=== PATIENT | male | born 1990 | race Caucasian/White ===

== ENCOUNTER 2018-12-17 14:25 | Emergency (ER) | payer OTHER ==
--- NOTE | 2018-12-18 13:50 | EDM.PDOC ---
ED HPI GENERAL MEDICAL PROBLEM - General Chief Complaint: Laceration Stated Complaint: CUT THUMB AT WORK Time Seen by Provider: 12/17/18 15:10 Source of Information: Reports: Patient History Limitations: Reports: No Limitations - History of Present Illness INITIAL COMMENTS - FREE TEXT/NARRATIVE: He cut his thumb on a Utility Knife while he was cutting duct tape off his boot. He lacerated the left thumb with an approx 1 cm laceration and this occurred at work. Onset: Today, Sudden Location: Reports: Other (left thumb PIP ) Quality: Reports: Other (bled profusely at first) Severity: Moderate Improves with: Reports: Other (pressure applied stopped bleeding) Worsens with: Reports: Movement Context: Reports: Activity Associated Symptoms: Reports: No Other Symptoms Treatments [employer]: Reports: Other (see below) (bandage) - Related Data Allergies Allergy/AdvReac Type Severity Reaction Status Date / Time No Known Allergies Allergy Verified 12/17/18 18:11 Home Meds: Home Meds . [Unable to Verify Home Med List] 12/17/18 [History] Past Medical History HEENT History: Reports: Other (See Below) Psychiatric History: Reports: ADHD, Depression - Past Surgical History HEENT Surgical History: Reports: Other (See Below) Other HEENT Surgeries/Procedures: wisdom teeth Musculoskeletal Surgical History: Reports: Other (See Below) Other Musculoskeletal Surgeries/Procedures:: heel surgery Social & Family History - Tobacco Use Smoking Status *Q: Unknown Ever Smoked - Recreational Drug Use Recreational Drug Use: No ED ROS GENERAL - Review of Systems Review Of Systems: ROS reveals no pertinent complaints other than HPI. Skin: Reports: Other (Left thumb has somewhat superficial horizontal laceration that is within the bending folds on the dorsal aspect of the left thumb at PIP. This separates approx 1-2 mm. No significant bleeding currently but it was bleeding a lot at time of injury. ) ED EXAM, SKIN/RASH Exam: See Below Text/Narrative:: Male in no acute distress. He has bandage over the left thumb and is holding this. He has a 1 cm laceration that is within the folds of the dorsal thumb at the PIP joint He has normal ROM, Sensation, capillary refill and strength The cut appears to be quite superficial; approx 1-2 mm deep and when pulled apart opens approx 1-2 mm Bleeding is controlled at this time but nurse and pt report that it bled quite profusely when injury occurred. THere is a superficial laceration on lateral side of index finger also which does not need attention. Exam Limited By: No Limitations General Appearance: Alert, WD/WN, No Apparent Distress ED SKIN PROCEDURES - Laceration/Wound Repair dermabond Appearance: Superficial, Subcutaneous, Linear, Clean Distal NVT: Neuro & Vascular Intact, No Tendon Injury Skin Prep: Chlorhexidine (Hibiciens), Saline Exploration/Debridement/Repair: Wound Explored, No Foreign Material Found Closed with: Dermabond Lac/Wound length In cm: 1 Sterile Dressing Applied: Nurse Tetanus Status Addressed: Yes Complications: No Course - Vital Signs Last Recorded V/S: Last Vital Signs Temp 97.2 F 12/17/18 14:55 Pulse 76 12/17/18 14:55 Resp 16 12/17/18 14:55 BP 122/72 12/17/18 14:55 Pulse Ox 98 12/17/18 14:55 Departure - Departure Time of Disposition: 16:40 Disposition: Home, Self-Care 01 Condition: Good Clinical Impression: Laceration of thumb without complication - Discharge Information *PRESCRIPTION DRUG MONITORING PROGRAM REVIEWED*: Not Applicable *COPY OF PRESCRIPTION DRUG MONITORING REPORT IN PATIENT FANTA: Not Applicable Instructions: Laceration Care, Adult, Tissue Adhesive Wound Care, [id number] Referrals: PCP,Not In Area [Primary Care Provider] - Forms: ED Department Discharge Additional Instructions: Keep wound dry for 24 hours Do not pick glue off thumb Watch for signs of infection Go to your primary care provider if you have increased pain or signs of infection
== END 2018-12-17 16:40 | disposition home or self-care (01) ==
LOC: VM.ED 14:25
DX: S61.012A Laceration without foreign body of left thumb without damage to nail, initial encounter (principal); W26.0XXA Contact with knife, initial encounter; Y92.89 Other specified places as the place of occurrence of the external cause; Y93.89 Activity, other specified; Y99.0 Civilian activity done for income or pay
CPT/HCPCS: 12001; 99282